=== PATIENT | male | born 1995 | race Hispanic/Latino ===

== ENCOUNTER 2020-06-20 22:56 | Emergency (ER) | payer SELFPAY | END 2020-06-21 01:09 | disposition home or self-care (01) | LOC: ERS 22:56 | DX: S01.311A Laceration without foreign body of right ear, initial encounter (principal); F17.290 Nicotine dependence, other tobacco product, uncomplicated; X58.XXXA Exposure to other specified factors, initial encounter | CPT/HCPCS: 99282 ==